=== PATIENT | male | born 1990 | race Caucasian/White ===

== ENCOUNTER → 2017-04-27 | Outpatient (CLI) | payer OTHER, BC ==
[2017-04-27 18:21] LABS: Basophils # (A) 0.1 k/uL (0-0.2); Basophils % (A) 1 %; CH 30.2; Eosinophils # (A) 0.2 k/uL (0-0.7); Eosinophils % (A) 2 %; HCT 47.8 % (39.0-53.0); HDW 2.66; HGB 16.3 gm/dL (13.0-17.5); Luc # (Auto) 0.21; Luc % (Auto) 2; Lymphocytes % (A) 26 %; MCH 29.6 pg (25.0-35.0); MCHC 34.1 g/dL (31.0-37.0); MCV 86.8 fL (80.0-100.0); Mean Platelet Volume 6.6; Monocytes # (A) 0.5 k/uL (0-1.0); Monocytes % (A) 5 %; Neutrophils # (A) 7.5 k/uL (1.3-7.7); Neutrophils % (A) 66 %; RBC 5.51 m/uL (4.30-5.90); WBC 11.5 k/uL (3.8-10.6); WBC (Perox) 11.25
[2017-04-27 19:10] LABS: ALT 49 U/L (21-72); AST 28 U/L (17-59); Alkaline Phosphatase 78 U/L (38-126); Anion Gap 13 mmol/L; Blood Urea Nitrogen 17 mg/dL (9-20); Calcium 9.4 mg/dL (8.4-10.2); Carbon Dioxide 23 mmol/L (22-30); Chloride 104 mmol/L (98-107); Cholesterol 195 mg/dL (<200); Glucose 84 mg/dL (74-99); HDL Cholesterol 32 mg/dL (40-60); Non-African American GFR(MDRD) >60 (>60 ml/min/1.73 sqM); Potassium 4.1 mmol/L (3.5-5.1); Sodium 140 mmol/L (137-145); Total Bilirubin 0.3 mg/dL (0.2-1.3); Total Protein 7.3 g/dL (6.3-8.2)
== END | disposition home or self-care (01) ==
LOC: MMGSC 16:48
PROVIDERS: ATTEND Family Medicine
DX: Z00.00 Encounter for general adult medical examination without abnormal findings (principal)
CPT/HCPCS: 36415; 80053; 80061; 84439; 84443; 85025

== ENCOUNTER → 2024-08-12 | Outpatient (CLI) | payer OTHER ==
--- NOTE | 2024-08-12 11:21 | XR ---
EXAMINATION TYPE: XR foot complete RT DATE OF EXAM: 08/12/2024 11:05 AM COMPARISON: None. CLINICAL INDICATION: Male, 33 years old with history of S99.921A R foot injury, pain [address] LB [place] [address] ON FOOT X 1 MONTH AGO; PAIN WHEN WALKING AND STANDING ON FOOT ALL DAY AT WORK TECHNIQUE: 3 view(s) obtained. FINDINGS: No acute fractures or dislocations evident. Joint spaces are preserved. Plantar and Achilles tendon c alcaneal heel spurs are present. Follow up exams can be performed 7-10 days from acute trauma for continued pain. IMPRESSION: 1. No acute or subacute osseous abnormality radiographically apparent. Follow-up as clinically indic ated. 2. Calcaneal heel spurs [facility], , 08/12/2024 11:18 AM
== END | disposition home or self-care (01) ==
LOC: RADXRMAIN 10:49
DX: S99.921A Unspecified injury of right foot, initial encounter (principal); M77.31 Calcaneal spur, right foot